=== PATIENT | female | born 1955 | race Asian ===

== ENCOUNTER 2017-01-04 02:25 | Emergency (ER) | payer SELFPAY ==
[~2017-01-04] VITALS: Ht 152.4 cm; Wt 59.1 kg
[2017-01-04] MEDS ORDERED: DIPH-543 PO (02:44)
[2017-01-04] MEDS ORDERED: SODIUM CHLORIDE 0.9% 1,000 ML IV ONE (03:01)
[2017-01-04] MEDS ORDERED: MethylPREDNISolone SOD SUCC 125 MG/2 ML VIAL IVP ONE (03:15)
[2017-01-04] MEDS ORDERED: FAMOTIDINE 20 MG TABLET PO ONE (03:15)
[2017-01-04] MEDS ORDERED: DiphenhydrAMINE HCL 50 MG/ML VIAL IVP ONE (03:15)
[2017-01-04 04:45] VITALS: BP 138/81
== END 2017-01-04 04:45 | disposition home or self-care (01) ==
LOC: EDBD 02:26 → EMS 02:26
DX: T78.40XA Allergy, unspecified, initial encounter (principal); K12.0 Recurrent oral aphthae; Y92.89 Other specified places as the place of occurrence of the external cause
CPT/HCPCS: 96361; 96374; 96375; 99285; J1200; J2930; J7030

== ENCOUNTER 2021-02-13 11:17 | Inpatient (IN) | payer MEDICARE, SELFPAY ==
[~2021-02-13] VITALS: Ht 149.9 cm; Wt 56.0 kg
[~2021-02-13 11:17] MED LIST: DIPH-543 PO
[2021-02-13] MEDS ORDERED: ASPIRIN 81 MG CHEWABLE TABLET PO ONE (12:15)
[2021-02-13] MEDS ORDERED: NITROGLYCERIN 2% (1 GM=INCH) PACKET TP ONE (12:15)
[2021-02-13 12:50] LABS: BASOPHILS % (AUTO) 0.9 % (0.0-2.0); EOSINOPHILS % (AUTO) 7.5 % (1.0-6.0); HEMATOCRIT 35.5 % (36-46); LYMPHOCYTES # (AUTO) 1.9 K/uL (1.0-4.8); LYMPHOCYTES % (AUTO) 33.6 % (22.0-44.0); MEAN CORPUSCULAR HEMOGLOBIN 21.9 pg (26.0-34.0); MEAN CORPUSCULAR VOLUME 71 fL (80-100); MONOCYTES # (AUTO) 0.6 K/uL (0.1-1.0); MONOCYTES % (AUTO) 9.8 % (2.0-9.0); NEUTROPHILS # (AUTO) 2.8 K/uL (1.8-7.7); NEUTROPHILS % (AUTO) 48.2 % (40.0-70.0); PLATELET COUNT (AUTO) 225 K/uL (150-450); RED BLOOD CELL COUNT(AUTO) 5.02 MIL/uL (4.00-5.20); RED CELL DISTRIBUTION WIDTH 14.4 % (11.5-14.5)
[2021-02-13 12:57] LABS: ANION GAP 4 mmol/L (8-16); CALCIUM, TOTAL 8.4 mg/dL (8.8-10.5); CARBON DIOXIDE 27 mmol/L (22-29); CHLORIDE 105 mmol/L (98-107); CREATININE 0.65 mg/dL (0.60-1.30); GLOMERULAR FILTR. RATE CALC > 60 mL/min (>60); GLUCOSE,RANDOM 126 mg/dL (70-110); SODIUM SERUM 136 mmol/L (136-145); UREA NITROGEN, BLOOD 11 mg/dL (7-18)
[2021-02-13 13:02] LABS: ALANINE AMINOTRANSFERASE 28 U/L (12-78); ALBUMIN 3.5 g/dL (3.4-5.0); ALKALINE PHOSPHATASE 128 U/L (46-116); ASPARTATE AMINOTRANSFERASE 19 U/L (15-37); BILIRUBIN,TOTAL 0.3 mg/dL (0.1-1.0); LIPASE 88 U/L (73-393); TOTAL PROTEIN, SERUM 7.2 g/dL (6.4-8.2)
[2021-02-13] MEDS ORDERED: MAGNESIUM HYDROXIDE SUSPENSION 30 ML UDCUP PO PRN (14:15)
[2021-02-13] MEDS ORDERED: ZOLPIDEM TARTRATE 10 MG TABLET PO PRN (14:15)
[2021-02-13] MEDS ORDERED: HYDROCODONE/ACETAMINOPHEN 5-325 MG TABLET PO PRN (14:15)
[2021-02-13] MEDS ORDERED: MORPHINE SULFATE 2 MG/ML SYRINGE IVP PRN (14:15)
[2021-02-13] MEDS ORDERED: IPRATROPIUM BROMIDE 0.5 MG/2.5 ML NEB SOLUTION NEB PRN (14:15)
[2021-02-13] MEDS ORDERED: ONDANSETRON HCL 4 MG/2 ML VIAL IVP PRN (14:15)
[2021-02-13] MEDS ORDERED: ACETAMINOPHEN 325 MG TABLET PO PRN (14:15)
[2021-02-13 14:37] LABS: COVID AG,FIA SOURCE NASOPHARYNGEAL
[2021-02-13 15:38] VITALS: BP 111/68
[2021-02-13] MEDS ORDERED: [UNRECOGNIZED DRUG - CODE] OU (16:07)
[2021-02-13] MEDS ORDERED: DOXY75TA14 PO (16:07)
[2021-02-13] MEDS ORDERED: IBUP-2070 PO (16:07)
[2021-02-13] MEDS ORDERED: TRAZ-252 PO (16:07)
[2021-02-13] MEDS ORDERED: OMEP20 PO (16:07)
[2021-02-13] MEDS ORDERED: METR500 PO (16:07)
[2021-02-13] MEDS: NITROGLYCERIN 2% (1 GM=INCH) PACKET TP SCH ×2 (18:32→23:47)
[2021-02-13] MEDS ORDERED: IBUPROFEN 600 MG TABLET PO PRN (19:00)
[2021-02-13] MEDS ORDERED: DiphenhydrAMINE HCL 50 MG CAPSULE PO PRN (19:30)
[2021-02-13 19:52] VITALS: BP 130/66
[2021-02-13] MEDS: DOCUSATE SODIUM 100 MG CAPSULE PO SCH ×2 (20:54→20:59)
[2021-02-13] MEDS: MetroNIDAZOLE 500 MG TABLET PO SCH (20:54)
[2021-02-13] MEDS: OMEPRAZOLE 20 MG CAPSULE PO SCH (20:54)
[2021-02-13] MEDS: DOXYCYCLINE HYCLATE 100 MG TABLET PO SCH (20:54)
[2021-02-13 23:54] VITALS: BP 130/70
[2021-02-14 04:56] VITALS: BP 149/76
[2021-02-14] MEDS: NITROGLYCERIN 2% (1 GM=INCH) PACKET TP SCH ×4 (06:04→23:33)
[2021-02-14 07:50] VITALS: BP 142/83
[2021-02-14 07:57] LABS: CHOL/HDL RATIO 5.1 (3.9-5.7)
[2021-02-14] MEDS: TraZODone HCL 50 MG TABLET PO SCH ×3 (08:33→19:00)
[2021-02-14] MEDS: DOCUSATE SODIUM 100 MG CAPSULE PO SCH ×2 (08:34→21:01)
[2021-02-14] MEDS: ASPIRIN 81 MG CHEWABLE TABLET PO SCH (08:34)
[2021-02-14] MEDS: MetroNIDAZOLE 500 MG TABLET PO SCH ×3 (08:34→21:01)
[2021-02-14] MEDS: DOXYCYCLINE HYCLATE 100 MG TABLET PO SCH ×2 (08:34→21:01)
[2021-02-14] MEDS: OMEPRAZOLE 20 MG CAPSULE PO SCH ×2 (08:34→21:01)
[2021-02-14 11:55] VITALS: BP 119/65
[2021-02-14 15:55] VITALS: BP 138/69
[2021-02-14 20:25] VITALS: BP 143/80
[2021-02-15] VITALS (7 sets, daily range): BP systolic 109–145; BP diastolic 53–77
[2021-02-15] MEDS: NITROGLYCERIN 2% (1 GM=INCH) PACKET TP SCH ×2 (05:57→11:04)
[2021-02-15] MEDS: MetroNIDAZOLE 500 MG TABLET PO SCH ×2 (07:49→16:00)
[2021-02-15] MEDS: DOXYCYCLINE HYCLATE 100 MG TABLET PO SCH (07:49)
[2021-02-15] MEDS: TraZODone HCL 50 MG TABLET PO SCH ×2 (07:49→13:39)
[2021-02-15] MEDS: DOCUSATE SODIUM 100 MG CAPSULE PO SCH (07:50)
[2021-02-15] MEDS: ASPIRIN 81 MG CHEWABLE TABLET PO SCH (07:50)
[2021-02-15] MEDS: OMEPRAZOLE 20 MG CAPSULE PO SCH (07:50)
[2021-02-15] MEDS ORDERED: REGADENOSON 0.4 MG/5 ML PF SYRINGE IVP ONE ×2 (08:00→11:56)
[2021-02-15] MEDS ORDERED: SESTAMIBI TC99M/UD ISOTOPE 1 EA INJ INJ ONE ×2 (09:20→11:20)
== END 2021-02-15 16:20 | disposition home or self-care (01) | DRG 392 ==
LOC: EMS 11:26 → 5S 15:20
PROVIDERS: ADMIT Hospitalist; ATTEND Hospitalist
PROC: 4A02XM4 Measurement of Cardiac Total Activity, External Approach (ICD-10-PCS; principal; 2021-02-15)
PROC: 3E073KZ Introduction of Other Diagnostic Substance into Coronary Artery, Percutaneous Approach (ICD-10-PCS; 2021-02-15)
DX: K21.9 Gastro-esophageal reflux disease without esophagitis (principal); G47.00 Insomnia, unspecified; Z20.822 Contact with and (suspected) exposure to COVID-19; Z86.19 Personal history of other infectious and parasitic diseases; Z79.899 Other long term (current) drug therapy; Z91.013 Allergy to seafood; Z79.82 Long term (current) use of aspirin
CPT/HCPCS: 71045; 78452; 80053; 80061; 83690; 84484; 85025; 93005; 93017; 93306; 99285; A9500; J2785; 36415-L1; 36415-TC

== ENCOUNTER 2022-10-09 20:05 | Emergency (ER) | payer MEDICARE, OTHER ==
[~2022-10-09] VITALS: Ht 152.4 cm; Wt 54.5 kg
[~2022-10-09 20:05] MED LIST changes: +DOXY75TA14 PO; +IBUP-1492 PO; +METR500 PO; +OMEP20 PO; +TRAZ-252 PO; +[UNRECOGNIZED DRUG - CODE] OU
[2022-10-09] MEDS ORDERED: METF-1211 PO (20:25)
[2022-10-09 20:47] LABS: GLUCOMETER DEV NAME(LOC) ERT.5; GLUCOSE,POINT OF CARE 95 MG/DL (70-110)
[2022-10-09 22:56] LABS: BASOPHILS % (AUTO) 0.4 % (0.0-2.0); EOSINOPHILS % (AUTO) 1.2 % (1.0-6.0); HEMATOCRIT 36.6 % (36-46); HEMOGLOBIN 11.5 g/dL (12.0-16.0); LYMPHOCYTES # (AUTO) 1.9 K/uL (1.0-4.8); LYMPHOCYTES % (AUTO) 28.3 % (22.0-44.0); MEAN CORPUSCULAR HEMOGLOBIN 22.4 pg (26.0-34.0); MEAN CORPUSCULAR HGB CONC 31.5 G/dL (31.0-37.0); MEAN CORPUSCULAR VOLUME 71 fL (80-100); MONOCYTES # (AUTO) 0.4 K/uL (0.1-1.0); NEUTROPHILS # (AUTO) 4.3 K/uL (1.8-7.7); NEUTROPHILS % (AUTO) 64.1 % (40.0-70.0); PLATELET COUNT (AUTO) 204 K/uL (150-450); RED BLOOD CELL COUNT(AUTO) 5.16 MIL/uL (4.00-5.20)
[2022-10-09 23:06] LABS: ANION GAP 8 mmol/L (8-16); CALCIUM, TOTAL 9.2 mg/dL (8.8-10.5); CARBON DIOXIDE 30 mmol/L (22-29); CHLORIDE 98 mmol/L (98-107); CREATININE 0.68 mg/dL (0.60-1.30); GLOMERULAR FILTR. RATE CALC > 60 mL/min (>60); GLUCOSE,RANDOM 103 mg/dL (70-110); POTASSIUM 3.7 mmol/L (3.5-5.1); SODIUM SERUM 136 mmol/L (136-145); UREA NITROGEN, BLOOD 8 mg/dL (7-18)
[2022-10-09 23:09] LABS: B-TYPE NATRIURETIC PEPTIDE 13 pg/mL (0-100)
[2022-10-09 23:11] LABS: ALANINE AMINOTRANSFERASE 31 U/L (12-78); ALBUMIN 4.5 g/dL (3.4-5.0); ALKALINE PHOSPHATASE 126 U/L (46-116); ASPARTATE AMINOTRANSFERASE 29 U/L (15-37); BILIRUBIN,TOTAL 0.4 mg/dL (0.1-1.0); CREATINE KINASE, TOTAL ONLY 173 U/L (26-192)
[2022-10-09 23:21] VITALS: BP 145/90
== END 2022-10-09 23:24 | disposition home or self-care (01) ==
LOC: EMS 20:16
DX: R42 Dizziness and giddiness (principal); I10 Essential (primary) hypertension; E11.9 Type 2 diabetes mellitus without complications; Z91.013 Allergy to seafood
CPT/HCPCS: 80053; 82550; 82962; 83880; 84484; 85025; 93005; 99283

== ENCOUNTER 2023-08-24 14:15 | Emergency (ER) | payer MEDICARE ==
[~2023-08-24] VITALS: Ht 149.9 cm; Wt 50.0 kg
[~2023-08-24 14:15] MED LIST changes: -DIPH-543 PO; -DOXY75TA14 PO; -IBUP-1492 PO; +METF-1211 PO; -METR500 PO; -TRAZ-252 PO; -[UNRECOGNIZED DRUG - CODE] OU
[2023-08-24 14:21] VITALS: TEMP 98.3
[2023-08-24] MEDS ORDERED: ATOR20TA PO (14:24)
[2023-08-24 18:19] LABS: BASOPHILS % (AUTO) 0.5 % (0.0-2.0); EOSINOPHILS % (AUTO) 1.1 % (1.0-6.0); HEMATOCRIT 39.1 % (36-46); HEMOGLOBIN 12.5 g/dL (12.0-16.0); LYMPHOCYTES # (AUTO) 2.2 K/uL (1.0-4.8); LYMPHOCYTES % (AUTO) 35.6 % (22.0-44.0); MEAN CORPUSCULAR HEMOGLOBIN 23.1 pg (26.0-34.0); MEAN CORPUSCULAR HGB CONC 32.1 G/dL (31.0-37.0); MEAN CORPUSCULAR VOLUME 72 fL (80-100); MONOCYTES # (AUTO) 0.4 K/uL (0.1-1.0); MONOCYTES % (AUTO) 5.8 % (2.0-9.0); NEUTROPHILS # (AUTO) 3.6 K/uL (1.8-7.7); PLATELET COUNT (AUTO) 241 K/uL (150-450); RED BLOOD CELL COUNT(AUTO) 5.42 MIL/uL (4.00-5.20); RED CELL DISTRIBUTION WIDTH 14.9 % (11.5-14.5); WHITE BLOOD COUNT (AUTO) 6.3 K/uL (4.5-11.0)
[2023-08-24 18:28] LABS: ANION GAP 8 mmol/L (8-16); CALCIUM, TOTAL 9.9 mg/dL (8.8-10.5); CARBON DIOXIDE 30 mmol/L (22-29); CHLORIDE 102 mmol/L (98-107); CREATININE 0.68 mg/dL (0.60-1.30); GLOMERULAR FILTR. RATE CALC > 60 mL/min (>60); GLUCOSE,RANDOM 131 mg/dL (70-110); SODIUM SERUM 140 mmol/L (136-145); UREA NITROGEN, BLOOD 19 mg/dL (7-18)
[2023-08-24 18:34] LABS: ALANINE AMINOTRANSFERASE 34 U/L (12-78); ALKALINE PHOSPHATASE 135 U/L (46-116); ASPARTATE AMINOTRANSFERASE 28 U/L (15-37); B-TYPE NATRIURETIC PEPTIDE 18 pg/mL (0-100); BILIRUBIN,TOTAL 0.3 mg/dL (0.1-1.0); TOTAL PROTEIN, SERUM 9.4 g/dL (6.4-8.2)
[2023-08-24 18:35] LABS: TROPONIN I-HIGH SENSITIVITY 6 ng/L (<51)
[2023-08-24 18:41] VITALS: BP 147/85; PULSE 71; RESP 12
[2023-08-24 18:49] LABS: RBC MORPHOLOGY COMMENT ABNORMAL RBC MORPH
== END 2023-08-24 20:13 | disposition home or self-care (01) ==
LOC: EMS 14:18
DX: G91.2 (Idiopathic) normal pressure hydrocephalus (principal); E11.9 Type 2 diabetes mellitus without complications; Z91.013 Allergy to seafood
CPT/HCPCS: 71045; 80053; 82962; 83880; 84484; 85025; 93005; 99285; 36415-L1; 36415-TC